=== PATIENT | male | born 1965 | race Hispanic/Latino ===

== ENCOUNTER 2018-08-29 08:59 | Day surgery (SDC) | payer BC | END 2018-08-29 09:15 | disposition home or self-care (01) | LOC: C.ENDO 08:59 | PROVIDERS: ATTEND Colon & Rectal Surgery | DX: Z53.9 Procedure and treatment not carried out, unspecified reason (principal); Z12.11 Encounter for screening for malignant neoplasm of colon; Z80.0 Family history of malignant neoplasm of digestive organs ==

== ENCOUNTER 2018-09-12 07:36 | Day surgery (SDC) | payer BC ==
[2018-09-11 11:26] VITALS: BMI 36.6
--- NOTE | 2018-09-12 09:01 | CP.SDSHP ---
Same Day Surgery H & P - History Proposed Procedure: colonoscopy - Previous Medical/Surgical History Neuro: Seizure Disorder - Allergies Allergies: Allergies No Known Allergies Allergy (Verified 09/11/18 11:36) - Physical Exam Vital Signs: Vital Signs 09/12/18 08:32 Temperature 98.6 F Pulse Rate 70 Respiratory 19 Rate Blood Pressure 131/75 O2 Sat by Pulse 97 Oximetry - Date & Time Date: 09/12/18 Time: 09:01 Short Stay Discharge - Short Stay Discharge Admitting Diagnosis/Reason for Visit: SCREENING / H/O COLON CANCER Disposition: HOME/ ROUTINE
[2018-09-12] MEDS ORDERED: Lactated Ringer's 1,000 ML IV ONE ×2 (09:10)
[2018-09-12] MEDS ORDERED: Midazolam 2 MG/2 ML VIAL ONE (09:17)
[2018-09-12] MEDS ORDERED: Propofol 10 mg/ml Inj (20 ML) ONE (09:17)
[2018-09-12 10:04] VITALS: TEMP 96.8
[2018-09-12 10:48] VITALS: RESP 10; O2SAT 100
[2018-09-12 10:49] VITALS: BP 129/77; PULSE 69
== END 2018-09-12 11:15 | disposition home or self-care (01) ==
LOC: C.ENDO 07:36
PROVIDERS: ATTEND Colon & Rectal Surgery
DX: Z12.11 Encounter for screening for malignant neoplasm of colon (principal); Z80.0 Family history of malignant neoplasm of digestive organs; K57.30 Diverticulosis of large intestine without perforation or abscess without bleeding; K64.8 Other hemorrhoids
CPT/HCPCS: 45378; 82948; J2250; J2704; J7120